=== PATIENT | female | born 1995 | race African-American/Black ===

== ENCOUNTER 2017-07-21 18:56 | Emergency (ER) | payer SELFPAY ==
[2017-07-21] MEDS ORDERED: Fentanyl 100 MCG/2 ML VIAL ONE ×2 (19:21→21:06)
[2017-07-21] MEDS ORDERED: Sodium Chloride 0.9% 1,000 ML ONE (19:21)
[2017-07-21] MEDS ORDERED: Ondansetron HCl/PF 4 MG/2 ML Vial ONE (19:21)
[2017-07-21 20:00] LABS: Bilirubin Negative (Negative); Blood, Urine Trace (Negative); Glucose, Urine (Dipstick) Negative (Negative); Leukocyte Large (Negative); Nitrite Negative (Negative); Protein, Urine (Dipstick) Negative (Neg-Trace); pH, Urine 6.5 (5.0-9.0)
[2017-07-21 20:01] LABS: #Basophils 0.2 thou/uL (0.0-0.2); #Eosinphils 0.4 thou/uL (0.0-0.7); #Lymphocytes 2.9 thou/uL (1.20-3.40); #Monocytes 1.1 thou/uL (0.11-0.59); #Neutrophils 10.7 thou/uL (1.40-6.50); %Eosinophils 2.9 % (0.0-10.0); %Lymphocytes 19.1 % (21.0-51.0); Hemoglobin 12.1 g/dL (12.0-16.0); Mean Corpuscular Hemoglobin 26.4 pg (27.0-31.0); Mean Corpuscular Volume 85.4 fl (81.0-99.0); Mean Platelet Volume 6.6 fL (7.4-10.4); Platelet Count 400 thou/uL (130-400); RBC Distribution Width 16.3 % (11.5-14.5); Red Blood Cell (RBC) Count 4.59 mill/uL (4.20-5.40); White Blood Cell (WBC) Count 15.3 thou/uL (4.8-10.8)
[2017-07-21 20:07] LABS: Clarity Hazy (Clear); Pregnancy Test - Urine (BHCG) Negative (Negative); Pregu Control Background? CLEAR/WHITE (CLR/WHITE); Pregu Control Bar Appear? YES (CONTROL BAR)
[2017-07-21 20:10] LABS: RBC/HPF 0-3 HPF (0-3)
[2017-07-21 20:11] LABS: Bacteria/HPF 2+ HPF (None Seen)
[2017-07-21 20:13] LABS: ALT (SGPT) 12 U/L (8-55); AST (SGOT) 12 U/L (5-34); Albumin 3.8 g/dL (3.5-5.0); Alkaline Phosphatase 120 U/L (40-150); Anion Gap 14 mmol/L (10-20); BUN (Urea Nitrogen) 9 mg/dL (7.0-18.7); Bilirubin, Total 0.4 mg/dL (0.2-1.2); Calc. Creatinine Clearance 0 mL/min (70-130); Calcium 8.9 mg/dL (7.8-10.44); Carbon Dioxide 25 mmol/L (22-29); Chloride 103 mmol/L (98-107); Estimated GFR-MDRD Greater than 90; Globulin 4.3 g/dL (2.4-3.5); Glucose 83 mg/dL (70-105); Potassium 4.1 mmol/L (3.5-5.1); Protein, Total 8.1 g/dL (6.0-8.3); Sodium 138 mmol/L (136-145)
[2017-07-21 20:18] LABS: Wet Prep Clue Cells Clue Cells PRESENT (None Seen); Wet Prep Trichomonas Trichomonas Absent (None Seen)
[2017-07-21] MEDS ORDERED: metroNIDAZOLE 500 MG TAB ONE (20:34)
[2017-07-23 18:21] LABS: Chlamydia by PCR DETECTED (NotDetected); GC by PCR DETECTED (NotDetected)
== END 2017-07-21 21:16 | disposition short-term general hospital (02) ==
LOC: NAV ERS 18:56
DX: N76.0 Acute vaginitis (principal); B96.89 Other specified bacterial agents as the cause of diseases classified elsewhere; E03.9 Hypothyroidism, unspecified; J45.909 Unspecified asthma, uncomplicated; F17.210 Nicotine dependence, cigarettes, uncomplicated; Z79.899 Other long term (current) drug therapy
CPT/HCPCS: 80053; 81003; 81015; 81025; 85025; 87086; 87210; 87491; 87591; 96361; 96374; 96375; 96376; J2405; J3010; J7050

== ENCOUNTER 2017-10-02 19:00 | Emergency (ER) | payer SELFPAY ==
[2017-10-02] MEDS ORDERED: Dexamethasone 4 mg/ml Vial ONE (19:47)
[2017-10-02] MEDS ORDERED: Ibuprofen 800 MG TAB ONE (20:48)
== END 2017-10-02 20:51 | disposition home or self-care (01) ==
LOC: NAV ERS 19:00
DX: J02.9 Acute pharyngitis, unspecified (principal); B34.9 Viral infection, unspecified; I10 Essential (primary) hypertension; E03.9 Hypothyroidism, unspecified; E66.9 Obesity, unspecified; F17.210 Nicotine dependence, cigarettes, uncomplicated
CPT/HCPCS: 87081; 87430; 96372; J1100

== ENCOUNTER 2017-11-05 18:13 | Emergency (ER) | payer SELFPAY ==
[2017-11-05] MEDS ORDERED: Acetaminophen 500 MG TAB ONE (18:34)
[2017-11-05] MEDS ORDERED: Ondansetron ODT 4 MG TAB ONE (18:34)
[2017-11-05 19:20] LABS: Pregnancy Test - Urine (BHCG) Negative (Negative); Pregu Control Background? CLEAR/WHITE (CLR/WHITE); Pregu Control Bar Appear? YES (CONTROL BAR); Specific Gravity 1.026 (1.002-1.036)
== END 2017-11-05 19:45 | disposition home or self-care (01) ==
LOC: NAV ERS 18:13
DX: B34.9 Viral infection, unspecified (principal); I10 Essential (primary) hypertension; E03.9 Hypothyroidism, unspecified; E66.9 Obesity, unspecified; J45.909 Unspecified asthma, uncomplicated; Z87.891 Personal history of nicotine dependence; Z79.899 Other long term (current) drug therapy; Z79.51 Long term (current) use of inhaled steroids
CPT/HCPCS: 81025; 99284; Q0162

== ENCOUNTER 2018-02-27 18:03 | Emergency (ER) | payer SELFPAY ==
[2018-02-27] MEDS ORDERED: Meclizine HCl 25 MG TAB ONE (18:25)
[2018-02-27 20:09] LABS: Pregnancy Test - Urine (BHCG) Negative (Negative)
[2018-02-27 20:10] LABS: Pregu Control Background? CLEAR/WHITE (CLR/WHITE); Pregu Control Bar Appear? YES (CONTROL BAR); Specific Gravity 1.008 (1.002-1.036)
== END 2018-02-27 20:22 | disposition home or self-care (01) ==
LOC: NAV ERS 18:03
DX: H81.399 Other peripheral vertigo, unspecified ear (principal); H55.00 Unspecified nystagmus; I10 Essential (primary) hypertension; E66.9 Obesity, unspecified; E03.9 Hypothyroidism, unspecified; J45.909 Unspecified asthma, uncomplicated; Z87.891 Personal history of nicotine dependence; Z79.899 Other long term (current) drug therapy
CPT/HCPCS: 81025; 99284

== ENCOUNTER 2018-07-10 07:39 | Emergency (ER) | payer SELFPAY ==
[2018-07-10] MEDS ORDERED: Ibuprofen 800 MG TAB ONE (08:00)
== END 2018-07-10 08:40 | disposition home or self-care (01) ==
LOC: NAV ERS 07:39
DX: J02.9 Acute pharyngitis, unspecified (principal); I10 Essential (primary) hypertension; E03.9 Hypothyroidism, unspecified; J45.909 Unspecified asthma, uncomplicated; Z87.891 Personal history of nicotine dependence; Z79.899 Other long term (current) drug therapy
CPT/HCPCS: 87081; 87430; 99283

== ENCOUNTER 2018-08-22 20:01 | Emergency (ER) | payer SELFPAY ==
[2018-08-22] MEDS ORDERED: Ibuprofen 800 MG TAB ONE (20:51)
--- NOTE | 2018-08-22 21:13 | RAD ---
TWO VIEWS CHEST: 08/22/18 HISTORY: Fever. PA and lateral views of the chest is obtained. The lungs are well aerated. No evidence of acute intra thoracic abnormality is seen. No evidence of effusions, pneumonia or pneumothorax seen. IMPRESSION: Unremarkable two views chest. POS: [facility]
== END 2018-08-22 21:35 | disposition home or self-care (01) ==
LOC: NAV ERS 20:01
DX: J06.9 Acute upper respiratory infection, unspecified (principal); E03.9 Hypothyroidism, unspecified; J45.909 Unspecified asthma, uncomplicated; E66.9 Obesity, unspecified; Z87.891 Personal history of nicotine dependence; Z79.899 Other long term (current) drug therapy
CPT/HCPCS: 71046; 87081; 87430

== ENCOUNTER 2018-11-26 20:21 | Emergency (ER) | payer SELFPAY ==
[2018-11-26] MEDS ORDERED: Ibuprofen 200 MG TAB ONE (20:55)
[2018-11-26] MEDS ORDERED: Penicillin V Potassium 250 MG TAB ONE (20:55)
[2018-11-26] MEDS ORDERED: Bicillin LA 1.2 MILLION UNITS/2 ML SYRINGE ONE (21:01)
== END 2018-11-26 21:30 | disposition home or self-care (01) ==
LOC: NAV ERS 20:21
DX: J02.0 Streptococcal pharyngitis (principal); E03.9 Hypothyroidism, unspecified; J45.909 Unspecified asthma, uncomplicated; Z87.891 Personal history of nicotine dependence; Z79.899 Other long term (current) drug therapy
CPT/HCPCS: 87430; 96372; J0561

== ENCOUNTER 2019-02-12 23:45 | Emergency (ER) | payer SELFPAY ==
[2019-02-13] MEDS ORDERED: Ondansetron ODT 4 MG TAB ONE (00:02)
[2019-02-13 00:27] LABS: Bilirubin Negative (Negative); Blood, Urine Negative (Negative); Clarity Clear (Clear); Glucose, Urine (Dipstick) Negative (Negative); Leukocyte Moderate (Negative); Nitrite Negative (Negative); Pregnancy Test - Urine (BHCG) Negative (Negative); Pregu Control Background? CLEAR/WHITE (CLR/WHITE); Pregu Control Bar Appear? YES (CONTROL BAR); Protein, Urine (Dipstick) Negative (Neg-Trace); pH, Urine 6.5 (5.0-9.0)
[2019-02-13 00:29] LABS: Bacteria/HPF 2+ HPF (None Seen); RBC/HPF None Seen HPF (0-3)
[2019-02-13] MEDS ORDERED: Cipro 250 MG TAB ONE (00:37)
== END 2019-02-13 00:40 | disposition home or self-care (01) ==
LOC: NAV ERS 23:45
DX: N39.0 Urinary tract infection, site not specified (principal); R11.2 Nausea with vomiting, unspecified; R19.7 Diarrhea, unspecified; E03.9 Hypothyroidism, unspecified; E66.9 Obesity, unspecified; J45.909 Unspecified asthma, uncomplicated; Z79.51 Long term (current) use of inhaled steroids; Z79.899 Other long term (current) drug therapy; Z87.891 Personal history of nicotine dependence
CPT/HCPCS: 81003; 81015; 81025; 87077; 87086; 99284; Q0162

== ENCOUNTER 2019-04-04 00:23 | Emergency (ER) | payer SELFPAY | END 2019-04-04 01:00 | disposition home or self-care (01) | LOC: NAV ERS 00:23 | DX: K60.2 Anal fissure, unspecified (principal); E03.9 Hypothyroidism, unspecified; E66.9 Obesity, unspecified; J45.909 Unspecified asthma, uncomplicated; Z87.891 Personal history of nicotine dependence; Z79.899 Other long term (current) drug therapy ==

== ENCOUNTER 2019-12-15 06:46 | Emergency (ER) | payer MEDICAID, OTHER, SELFPAY ==
[2019-12-15 07:35] LABS: #Eosinphils 0.2 thou/uL (0.0-0.7); #Lymphocytes 0.7 thou/uL (1.20-3.40); #Monocytes 0.7 thou/uL (0.11-0.59); #Neutrophils 11.7 thou/uL (1.40-6.50); %Basophils 0.3 % (0.0-1.0); %Eosinophils 1.3 % (0.0-10.0); %Lymphocytes 5.3 % (21.0-51.0); %Monocytes 5.4 % (0.0-10.0); %Neutrophils 87.7 % (42.0-75.0); Hemoglobin 14.2 g/dL (12.0-16.0); Mean Corpuscular HGB CONC 31.5 g/dL (32.0-36.0); Mean Corpuscular Hemoglobin 27.3 pg (27.0-31.0); Mean Corpuscular Volume 86.5 fL (78.0-98.0); Platelet Count 312 thou/uL (130-400); RBC Distribution Width 16.5 % (11.5-14.5); White Blood Cell (WBC) Count 13.4 thou/uL (4.8-10.8)
[2019-12-15] MEDS ORDERED: Sodium Chloride 0.9% 1,000 ML ONE (07:47)
[2019-12-15] MEDS ORDERED: Ondansetron PF 4 MG/2 ML Vial ONE (07:47)
[2019-12-15 07:53] LABS: ALT (SGPT) 20 U/L (8-55); AST (SGOT) 21 U/L (5-34); Albumin 4.1 g/dL (3.5-5.0); Alkaline Phosphatase 130 U/L (40-110); Anion Gap 18 mmol/L (10-20); BUN (Urea Nitrogen) 13 mg/dL (7.0-18.7); Bilirubin, Total 0.5 mg/dL (0.2-1.2); Calc. Creatinine Clearance 0 mL/min (70-130); Calcium 9.2 mg/dL (7.8-10.44); Carbon Dioxide 21 mmol/L (22-29); Chloride 103 mmol/L (98-107); Estimated GFR-MDRD Greater than 90; Globulin 4.3 g/dL (2.4-3.5); Glucose 83 mg/dL (70-105); Lipase 8 U/L (8-78); Potassium 4.8 mmol/L (3.5-5.1); Protein, Total 8.4 g/dL (6.0-8.3); Sodium 137 mmol/L (136-145)
[2019-12-15 07:59] LABS: Bilirubin Negative (Negative); Blood, Urine Negative (Negative); Clarity Slightly Cloudy (Clear); Glucose, Urine (Dipstick) Negative (Negative); Leukocyte Negative (Negative); Nitrite Negative (Negative); Protein, Urine (Dipstick) 30 mg/dL (Neg-Trace); Urobilinogen 0.2 mg/dL (Less than 2)
[2019-12-15 08:01] LABS: Pregnancy Test - Urine (BHCG) Negative (Negative); Pregu Control Bar Appear? YES (CONTROL BAR); Specific Gravity 1.015 (1.002-1.036)
[2019-12-15] MEDS ORDERED: Morphine 2 MG/ML SYRINGE ONE (08:01)
[2019-12-15 08:02] LABS: Pregu Control Background? CLEAR/WHITE (CLR/WHITE)
[2019-12-15 08:05] LABS: Bacteria/HPF None Seen HPF (None Seen); RBC/HPF 0-3 HPF (0-3); WBC/HPF 0-3 HPF (0-3)
--- NOTE | 2019-12-15 08:15 | RAD ---
EXAM: CHEST ONE VIEW HISTORY: Chest pain and upper abdominal cramping. Lower chest tightness. COMPARISON: 08/17/2015 FINDINGS: This examination is overpenetrated, and there is exclusion of the lateral left lung base. Visualized lungs are otherwise clear. Cardiac silhouette is magnified by projection but stable in size. Pulmonary vasculature is within normal limits for technique. No other interval change. IMPRESSION: Exclusion of the lateral left lung base, but there is otherwise no acute cardiopulmonary process.
--- NOTE | 2019-12-15 10:12 | ULT ---
EXAM: US Abdomen Limited CLINICAL HISTORY: Right upper quadrant pain, x1 day. COMPARISON: None. FINDINGS: Pancreas: The head and proximal pancreatic body have a normal echotexture. The remainder the pancrea s is obscured by bowel gas Liver:Heterogeneous echotexture liver may be due to hepatic steatosis or hepatocellular disease. Subs equent limited evaluation for hepatic masses and intrahepatic biliary dilatation. Right hepatic lobe: 14.5 cm Gallbladder: No sonographic evidence of cholelithiasis, gallbladder wall thickening or pericholecysti c fluid. Smith's sign:Negative Portal Vein: Patent. Appropriate directional flow Bile ducts: Not adequately assessed due to shadowing Right kidney: No hydronephrosis. Right kidney measures 10.3 x 5.0 x 3.9 cm in length. IMPRESSION: 1. Limited evaluation due to body habitus. 2. No sonographic evidence of cholelithiasis or cholecystitis 3. Suboptimal evaluation of the common bile duct 4. Increased hepatic echotexture as described above.
== END 2019-12-15 10:57 | disposition home or self-care (01) ==
LOC: NAV ERS 06:46
DX: R10.12 Left upper quadrant pain (principal); R11.2 Nausea with vomiting, unspecified; E03.9 Hypothyroidism, unspecified; D57.3 Sickle-cell trait; J45.909 Unspecified asthma, uncomplicated; Z87.891 Personal history of nicotine dependence; Z79.51 Long term (current) use of inhaled steroids; Z79.899 Other long term (current) drug therapy
CPT/HCPCS: 71045; 76705; 80053; 81003; 81015; 81025; 83690; 85025; 93005; 94760; 96361; 96374; J2270; J2405; J7050

== ENCOUNTER 2021-12-15 15:12 | Emergency (ER) | payer BC ==
[2021-12-15 16:13] LABS: Bilirubin Negative (Negative); Blood, Urine Negative (Negative); Glucose, Urine (Dipstick) Negative (Negative); Ketone, Urine Negative (Negative); Leukocyte Negative (Negative); Nitrite Negative (Negative); Protein, Urine (Dipstick) Negative (Neg-Trace); Urobilinogen > or = 8.0 mg/dL (Less than 2); pH, Urine 6.5 (5.0-9.0)
[2021-12-15 16:14] LABS: Clarity SL HAZY (Clear); Specific Gravity, Urine 1.025 (1.005-1.030)
[2021-12-15 16:15] LABS: Pregnancy Test - Urine (BHCG) Negative (Negative); Pregu Control Background? CLEAR/WHITE (CLR/WHITE); Pregu Control Bar Appear? YES (CONTROL BAR); Specific Gravity 1.025 (1.002-1.036)
[2021-12-16 18:35] LABS: SARS-CoV-2 PCR by NAA Not Detected (NotDetected)
== END 2021-12-15 16:41 | disposition home or self-care (01) ==
LOC: NAV ERS 15:12
DX: J06.9 Acute upper respiratory infection, unspecified (principal); B34.9 Viral infection, unspecified; E03.9 Hypothyroidism, unspecified; J45.909 Unspecified asthma, uncomplicated; N83.209 Unspecified ovarian cyst, unspecified side; E66.9 Obesity, unspecified; Z20.822 Contact with and (suspected) exposure to COVID-19; Z68.45 Body mass index [BMI] 70 or greater, adult; Z87.891 Personal history of nicotine dependence; Z86.16 Personal history of COVID-19; Z79.899 Other long term (current) drug therapy
CPT/HCPCS: 81003; 81025; 87804; 99283; U0003; U0005

== ENCOUNTER 2022-11-05 20:13 | Emergency (ER) | payer BC ==
[2022-11-05] MEDS ORDERED: Acetaminophen 500 MG TAB ONE (20:45)
== END 2022-11-05 21:25 | disposition home or self-care (01) ==
LOC: NAV ERS 20:13
DX: J10.1 Influenza due to other identified influenza virus with other respiratory manifestations (principal); E03.9 Hypothyroidism, unspecified; F17.210 Nicotine dependence, cigarettes, uncomplicated; Z20.822 Contact with and (suspected) exposure to COVID-19
CPT/HCPCS: 87804; 99283; U0003; U0005